=== PATIENT | male | born 1960 | race Caucasian/White ===

== ENCOUNTER 2017-12-05 05:21 | Emergency (ER) | payer OTHER ==
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
== END 2017-12-05 06:10 | disposition home or self-care (01) ==
LOC: MW.ED 05:21
DX: M62.838 Other muscle spasm (principal); F17.210 Nicotine dependence, cigarettes, uncomplicated
CPT/HCPCS: 99282; 99283

== ENCOUNTER 2020-01-11 05:10 | Emergency (ER) | payer OTHER, BC | END 2020-01-11 05:20 | LOC: MW.ED 05:10 | DX: Z53.21 Procedure and treatment not carried out due to patient leaving prior to being seen by health care provider (principal) ==

== ENCOUNTER 2021-05-01 19:27 | Emergency (ER) | payer BC ==
[2021-05-01] MEDS ORDERED: Sodium Chloride 0.9% 10 ML Syringe FLUSH PRN (19:28)
[2021-05-01] MEDS ORDERED: Sodium Chloride 0.9% 2.5 ML Syringe FLUSH PRN (19:28)
[2021-05-01] MEDS: Nitroglycerin 0.4 MG Tab.SL SL PRN ×3 (20:24→20:38)
[2021-05-01] MEDS ORDERED: Morphine 4 MG/ML VIAL IVPUSH ONE ×2 (20:45→22:16)
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
--- NOTE | 2021-05-01 20:59 | CR ---
INDICATION: Chest pain TECHNIQUE: Portable upright AP view of the chest COMPARISON: PA and lateral chest radiographs 10/05/2018 FINDINGS/IMPRESSION: 1. There is prominence of the aortic arch. While this is likely technical, follow-up CTA is recommended to exclude aortic pathology. 2. Mild elevation of the left hemidiaphragm with mild left lung base atelectasis. The right lung is clear. 3. No sizable pleural effusion. No pneumothorax. The thoracic osseous structures are unremarkable. Dictated by Kayy Marcos MD @ 05/01/2021 8:58:30 PM (Electronically Signed)
[2021-05-01 21:23] LABS: BLOOD UREA NITROGEN,BUN 14 mg/dL (7.0-18.0); CARBON DIOXIDE,CO2 28.1 mmol/L (21.0-32.0); CHLORIDE,CL 103 mmol/L (98-107); GLUCOSE RANDOM 143 mg/dL (74-106); POTASSIUM,K 4.9 mmol/L (3.5-5.1); SODIUM,NA 137 mmol/L (136-148)
[2021-05-01] MEDS ORDERED: Iopamidol 755 MG/ML 500 ML Multipack Bottle IVPUSH STA (23:05)
--- NOTE | 2021-05-02 00:06 | CT ---
INDICATION: Chest mass with possible aortic involvement. COMPARISON: Portable chest from today. TECHNIQUE: CT angiography of the chest was performed with the uneventful intravenous administration of 100 cc of Isovue 370 while 1 and 3 mm thick axial sections were obtained from above the apices of the lungs through the superior abdomen. Please note that all CT scans at this facility use dose modulation, iterative reconstruction, and/or weight-based dosing when appropriate to reduce radiation dose to as low as reasonably achievable. FINDINGS: The soft tissue fullness in the area of the aortic arch is seen to be an anterior mediastinal mass located adjacent to the aortic arch, in the anterior portion of the left upper lobe. It measures 7.2 x 6.2 x 5.7 centimeters and is most likely a primary carcinoma of the lung. There is an additional nodule in the posterior aspect of the posterior segment of the right upper lobe extending to the major fissure measuring 1.5 x 1.1 centimeters on axial image 20 series 402. This is most likely a metachronous primary malignancy given its peripheral upper lobe location, although metastatic disease cannot be excluded. There is moderate eventration of the left hemidiaphragm posteriorly, associated with moderate linear atelectasis of the inferior aspect of the left lower lobe at the lung base. The thoracic aorta is normal in caliber with no sign of dilatation or dissection. There is no sign of periaortic hematoma. The left upper lobe mass does not invade or encase the adjacent aortic arch. The rest of the chest is clear, with no sign of any additional infiltrate or mass. There is excellent enhancement of the pulmonary arteries with no sign of pulmonary embolism. There is no sign of mediastinal or hilar mass or adenopathy. There is moderate left supraclavicular lymphadenopathy with lymph node with short axis diameter of 1.9 centimeters on axial image 20 series 401. There is no sign of right supraclavicular or axillary mass or adenopathy. The heart is normal in appearance for the patient`s age. There is age appropriate appearance of the ascending great vessels. The visualized superior liver, spleen, pancreas, and adrenals are normal in appearance. Cysts are seen arising from both kidneys, a cyst arising from the upper pole on the left measuring 4.8 centimeters in diameter and the cyst projecting medially from the interpolar region of the right kidney measuring at least 3.5 centimeters, incompletely examined. The osseous structures are normal in appearance for the patient`s age. There is no sign of any lytic or blastic lesions to suggest metastatic disease to the bone. IMPRESSION: Anterior mediastinal mass located adjacent to the aortic arch in the anterior portion of the left upper lobe measuring 7.2 x 6.2 x 5.7 centimeters, most likely a primary carcinoma of the lung. 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 No sign of mediastinal or hilar lymphadenopathy, although there is moderate left supraclavicular lymphadenopathy. Normal appearance of the thoracic aorta, with no sign of invasion or encasement by the left upper lobe mass. Please note that all CT scans at this facility use dose modulation, iterative reconstruction, and/or weight-based dosing when appropriate to reduce radiation dose to as low as reasonably achievable. Dictated by Rudy Momin MD @ 05/02/2021 12:05:01 AM (Electronically Signed)
[2021-05-02] MEDS ORDERED: amLODIPine 5 MG Tab PO ONE (00:23)
== END 2021-05-02 01:13 | disposition home or self-care (01) ==
LOC: MW.ED 19:27
DX: R22.2 Localized swelling, mass and lump, trunk (principal); I10 Essential (primary) hypertension; Z20.822 Contact with and (suspected) exposure to COVID-19
CPT/HCPCS: 36415; 71045; 71275; 80053; 84484; 85025; 87635; 96374; 96376; 99285; A9270; J2270; Q9967; U0002

== ENCOUNTER 2021-08-03 12:42 | Emergency (ER) | payer BC ==
[2021-08-03] MEDS ORDERED: Sodium Chloride 0.9% 1,000 ML IV ONE (13:01)
[2021-08-03] MEDS ORDERED: diphenhydrAMINE 50 MG/ML SDV IVPUSH ONE (13:02)
[2021-08-03] MEDS ORDERED: Promethazine 25 MG/ML SDV IM ONE (13:02)
[2021-08-03] MEDS ORDERED: Ketorolac 30 MG/ML SDV IVPUSH ONE (13:02)
[2021-08-03 14:11] LABS: BLOOD UREA NITROGEN,BUN 13 mg/dL (7.0-18.0); CARBON DIOXIDE,CO2 26.5 mmol/L (21.0-32.0); CHLORIDE,CL 100 mmol/L (98-107); GLUCOSE RANDOM 143 mg/dL (74-106); POTASSIUM,K 4.1 mmol/L (3.5-5.1); SODIUM,NA 137 mmol/L (136-148)
[2021-08-03 14:22] LABS: CORONAVIRUS COVID-19 NAA NEGATIVE (NEGATIVE); INFLUENZA A NAA NEGATIVE (NEGATIVE); INFLUENZA B NAA NEGATIVE (NEGATIVE)
== END 2021-08-03 14:58 | disposition home or self-care (01) ==
LOC: MW.ED 12:42
DX: R11.2 Nausea with vomiting, unspecified (principal); T45.1X5A Adverse effect of antineoplastic and immunosuppressive drugs, initial encounter; I10 Essential (primary) hypertension; Z20.822 Contact with and (suspected) exposure to COVID-19
CPT/HCPCS: 0240U; 36415; 80053; 83605; 83735; 85025; 96372; 96374; 96375; 99283; J1200; J1642; J1885; J2550; J7030

== ENCOUNTER 2021-08-07 17:13 | Emergency (ER) | payer BC ==
[2021-08-07] MEDS ORDERED: Sodium Chloride 0.9% 1,000 ML IV STA (17:21)
[2021-08-07] MEDS ORDERED: Ondansetron 4 MG/2 ML SDV IVPUSH ONE (17:38)
[2021-08-07] MEDS ORDERED: Scopolamine 1.5 MG Transdermal Patch TOP ONE (17:38)
[2021-08-07] MEDS ORDERED: Ketorolac 30 MG/ML SDV IVPUSH ONE (17:43)
[2021-08-07 19:00] LABS: BLOOD UREA NITROGEN,BUN 13 mg/dL (7.0-18.0); CHLORIDE,CL 99 mmol/L (98-107); GLUCOSE RANDOM 138 mg/dL (74-106); LIPASE 82 U/L (73-393); POTASSIUM,K 3.9 mmol/L (3.5-5.1); SODIUM,NA 136 mmol/L (136-148)
[2021-08-07] MEDS ORDERED: Sodium Chloride 0.9% 1,000 ML IV ONE (19:05)
[2021-08-07] MEDS ORDERED: Dexamethasone 10 MG/ML SDV IVPUSH ONE (20:15)
[2021-08-07] MEDS ORDERED: Pantoprazole 40 MG in Sodium Chloride 0.9% 10 ML IVPUSH SCH (20:30)
== END 2021-08-07 20:45 | disposition home or self-care (01) ==
LOC: MW.ED 17:13
DX: C34.90 Malignant neoplasm of unspecified part of unspecified bronchus or lung (principal); G93.6 Cerebral edema; I10 Essential (primary) hypertension; Z79.899 Other long term (current) drug therapy
CPT/HCPCS: 36415; 70450; 80053; 83690; 84484; 85025; 93005; 96374; 96375; 99284; A9270; C9113; J1100; J1642; J1885; J2405; J7030

== ENCOUNTER 2021-09-08 14:30 | Emergency (ER) | payer BC ==
[2021-09-08 15:55] LABS: BLOOD UREA NITROGEN,BUN 18 mg/dL (7.0-18.0); CARBON DIOXIDE,CO2 27.6 mmol/L (21.0-32.0); CHLORIDE,CL 102 mmol/L (98-107); ESTIMATED GFR > 60.0 ml/min; GLUCOSE RANDOM 121 mg/dL (74-106); POTASSIUM,K 3.8 mmol/L (3.5-5.1); SODIUM,NA 137 mmol/L (136-148)
[2021-09-08] MEDS ORDERED: Iopamidol 755 MG/ML 500 ML Multipack Bottle IVPUSH ONE (17:55)
== END 2021-09-08 17:59 | disposition home or self-care (01) ==
LOC: MW.ED 14:30
DX: R59.0 Localized enlarged lymph nodes (principal); I10 Essential (primary) hypertension; Z72.0 Tobacco use
CPT/HCPCS: 36415; 70491; 80053; 85025; 99283; J1642; Q9967; 99284

== ENCOUNTER 2022-01-20 14:32 | Emergency (ER) | payer BC ==
[2022-01-20] MEDS ORDERED: Sodium Chloride 0.9% 500 ML IV ONE (15:26)
[2022-01-20 16:58] LABS: CARBON DIOXIDE,CO2 26.3 mmol/L (21.0-32.0); POTASSIUM,K 3.8 mmol/L (3.5-5.1)
[2022-01-20] MEDS ORDERED: Heparin Sodium 10 Units/ML 5 ML Syringe FLUSH PRN (17:44)
[2022-01-20] MEDS ORDERED: Heparin Sodium 100 Units/ML 3 ML Syringe FLUSH PRN (17:52)
== END 2022-01-20 18:29 | disposition home or self-care (01) ==
LOC: MW.ED 14:32
DX: R62.7 Adult failure to thrive (principal); I10 Essential (primary) hypertension; F17.210 Nicotine dependence, cigarettes, uncomplicated; Z20.822 Contact with and (suspected) exposure to COVID-19
CPT/HCPCS: 36415; 80053; 82550; 83605; 83735; 84100; 84443; 85025; 87040; 87635; 96360; 96361; 99284; J1642; J7040; U0002